=== PATIENT | female | born 1980 | race Caucasian/White ===

== ENCOUNTER 2020-06-20 14:12 | Outpatient (RCR) | payer OTHER ==
[~2020-06-20 14:12] MED LIST: ACHD5005 PO; DOCO100C PO; IBP600T1 PO; PREN1TAB14 PO
== END 2020-07-23 11:36 | disposition home or self-care (01) ==
PROVIDERS: ATTEND Family Medicine
DX: M54.12 Radiculopathy, cervical region (principal)